=== PATIENT | male | born 1995 | race Native Hawaiian/Other Pacific Islander ===

== ENCOUNTER → 2021-10-02 13:41 | Outpatient (BNVA) | payer SELFPAY | PROVIDERS: Visit Provider Emergency Medicine | DX: R63.4 Abnormal weight loss (principal); R63.0 Anorexia | CPT/HCPCS: 80053; 85025 ==

== ENCOUNTER 2021-12-11 18:24 | Emergency (ER) | payer SELFPAY ==
[2021-12-11 18:36] VITALS: BP 145/90; PULSE 100; RESP 18; TEMP 36.8; O2SAT 96; BMI 17.4
--- NOTE | 2021-12-11 18:42 | XRR_ITS ---
PROCEDURE INFORMATION: Exam: XR Abdomen Exam date and time: 12/11/2021 7:34 PM Age: 26 years old Clinical indication: Abdominal pain; Acute; Additional info: Consitpation TECHNIQUE: Imaging protocol: Radiologic exam of the abdomen. Views: Frontal supine view of the abdomen. 1 View. COMPARISON: CR XR chest 1V [id number] 11/25/2017 12:48 AM FINDINGS: Gastrointestinal tract: Normal. No bowel dilation. Bones/joints: Unremarkable. XR/XR abdomen 1V* [id number] IMPRESSION: Negative for significant constipation or bowel dilation to indicate obstruction.
[2021-12-11 19:13] LABS: Basophils % 0.6 %; Eosinophils % 0.1 %; Hematocrit 47.4 % (42.0-52.0); Lymphocytes # 1.4 10^3/uL (0.8-4.8); Lymphocytes % 19.8 %; Mean Corpuscular HGB Conc 33.8 g/dL (30.0-36.0); Mean Corpuscular Hemoglobin 29.4 pg (28.0-34.0); Mean Platelet Volume 10.7 fL (7.4-10.4); Monocytes # 0.5 10^3/uL (0.2-0.9); Monocytes % 7.3 %; Neutrophils # 5.09 10^3/uL (1.8-7.7); Neutrophils % 71.9 %; Nucleated Red Blood Cells % 0 %; Platelet Count 202 10^3/cmm (130-400); Red Blood Count 5.45 10^6/uL (4.1-5.3); Red Cell Distribution Width 11.9 % (12.1-15.1); White Blood Count 7.1 10^3/uL (4.0-10.0)
--- NOTE | 2021-12-11 19:28 | ED_ITS ---
HPI - General Adult General: Chief complaint: General Medical Stated complaint: abd pain Time Seen by Provider: 12/11/21 19:28 History of Present Illness: Mr. Lebron is a 26-year-old gentleman with former history of alcohol abuse 2 years sober who presents to the emergency department due to weight loss and early satiety. Reports worsening of symptoms for a number of months including epigastric discomfort. He denies choking or gagging sensation. He denies changes in bowel movements or urination. Overall course of symptoms has worsened. He has noted weight loss. No other specific changes in health, exacerbating, or alleviating factors identified. Onset (ago): month(s) Location: abdomen Quality: aching Pain Consistency: constant Exacerbating factors: eating Associated symptoms: Reports other Review of Systems General: Reports: 10 or more systems reviewed and unremarkable except in HPI and below PFSH ED PFSH: Medical History (Updated 12/19/21 @ 00:01 by ) No significant past medical history Surgical History (Updated 12/11/21 @ 20:13 by Jesse Knight MD) No significant past surgical history Social History Smoking and tobacco status: former smoker Alcohol intake: former Physical Exam Const: COMMON NORMALS: alert GENERAL APPEARANCE: cooperative and well developed NUTRITIONAL APPEARANCE: underweight HENMT: COMMON NORMALS: normocephalic and atraumatic HEAD & SCALP: normoc ephalic and atraumatic Eye: COMMON NORMALS: conjunctivae normal CONJUNCTIVA: Yes conjunctivae normal SCLERA: sclerae normal Neck/C-Spine: COMMON NORMALS: supple GENERAL: Yes trachea midline Resp: COMMON NORMALS: clear to auscultation bilaterally EFFORT & INSPECTION: Yes able to speak in complete sentences AUSCULTATION: clear to auscultation bilaterally Cardio: COMMON NORMALS: regular rate and regular rhythm RATE: regular rate RHYTHM: regular rhythm GI: COMMON NORMALS: Soft to palpation PALPATION: Yes Soft to palpation, Yes Tenderness to palpation present (GI), No Guarding due to palpation present (GI) and No Rigid due to palpation Extremity: GENERAL: Yes normal exam except as noted and No edema Neuro: COMMON NORMALS: moves all extremities SENSORIUM/ORIENTATION: Yes shaniqua rt and No Orientation impaired Psych: COMMON NORMALS: mental status grossly normal and Normal thought process present THOUGHT PROCESS: Normal thought process present Course Vital Signs: Vital signs: Vital Signs Temperature 98.3 F 12/11/21 18:36 Pulse Rate 77 12/11/21 23:25 Respiratory Rate 16 12/11/21 23:25 Blood Pressure 136/84 12/11/21 23:25 Pulse Oximetry 99 12/11/21 23:25 Oxygen Delivery Me thod 12/11/21 18:36 MDM - General Adult Medical Decision Making 26-year-old gentleman presenting to the emergency department with abdominal pain and weight loss. Exam as above. Laboratory studies with no leukocytosis, normal hemoglobin. Metabolic panel with perhaps mild evidence of dehydration. Albumin is normal. X-ray abdomen negative for obstructive bowel gas pattern. CT abdomen pelvis negative for acute pathology to explain patient's symptoms. Discussed results of ED evaluation with the patient. It satisfactory for further outpatient evaluation with consideration for endoscopy and further PCP. Medical Records I reviewed the patient's medical records. Lab Data I reviewed the patient's lab results. : 12/11/21 19:04 12/11/21 19:04 Radiology Impressions Abdomen X-Ray 12/11/21 18:42 IMPRESSION: Negative for significant constipation or bowel dilation to indicate obstruction. Abdomen/Pelvis CT 12/11/21 19:47 IMPRESSION: 1. Negative for mass lesion, adenopathy or acute inflammatory process in the abdomen or pelvis. 2. Bibasilar atelectasis. Laboratory Results WBC 7.1 10^3/uL (4.0-10.0) 12/11/21 19:04 RBC 5.45 10^6/uL (4.1-5.3) H 12/11/21 19:04 Hgb 16.0 g/dL (11.7-16.6) 12/11/21 19:04 Hct 47.4 % (42.0-52.0) 12/11/21 19:04 MCV 87.0 fl (80-94) 12/11/21 19:04 MCH 29.4 pg (28.0-34.0) 12/11/21 19:04 MCHC 33.8 g/dL (30.0-36.0) 12/11/21 19:04 RDW 11.9 % (12.1-15.1) L 12/11/21 19:04 Plt Count 202 10^3/cmm (130-400) 12/11/21 19:04 MPV 10.7 fL (7.4-10.4) H 12/11/21 19:04 Neut % (Auto) 71.9 % 12/11/21 19:04 Lymph % (Auto) 19.8 % 12/11/21 19:04 [place] % (Auto) 7.3 % 12/11/21 19:04 Eos % (Auto) 0.1 % 12/11/21 19:04 Baso % (Auto) 0.6 % 12/11/21 19:04 Neut # (Auto) 5.09 10^3/uL (1.8-7.7) 12/11/21 19:04 Lymph # (Auto) 1.4 10^3/uL (0.8-4.8) 12/11/21 19:04 [place] # (Auto) 0.5 10^3/uL (0.2-0.9) 12/11/21 19:04 Eos # (Auto) 0.0 10^3/uL (0.0-0.8) 12/11/21 19:04 Baso # (Auto) 0.0 10^3/uL (0.0-0.1) 12/11/21 19:04 Nucleated RBC % (auto) 0 % 12/11/21 19:04 Nucleated RBCs # 0.0 /100WBC 12/11/21 19:04 Sodium 137 mmol/L (136-145) 12/11/21 19:04 Potassium 3.8 mmol/L (3.5-5.1) 12/11/21 19:04 Chloride 96 mmol/L (98-107) L 12/11/21 19:04 Carbon Dioxide 25 mmol/L (22-29) 12/11/21 19:04 Anion Gap 19.8 (5-19) H 12/11/21 19:04 BUN 9 mg/dL (6-20) 12/11/21 19:04 Creatinine 1.0 mg/dL (0.7-1.2) 12/11/21 19:04 GFR Calculation 90.3 mL/min (90-130) 12/11/21 19:04 Glucose 131 mg/dL (65-115) H 12/11/21 19:04 Calculated Osmolality 284 mOsm/kg (285-295) L 12/11/21 19:04 Calcium 9.8 mg/dL (8.5-10.5) 12/11/21 19:04 Total Bilirubin 0.5 mg/dL (0.15-1.2) 12/11/21 19:04 AST 12 U/L (0-40) 12/11/21 19:04 ALT < 5 U/L (0-41) 12/11/21 19:04 Alkaline Phosphatase 69 U/L (40-130) 12/11/21 19:04 Total Protein 7.9 g/dL (6.6-8.7) 12/11/21 19:04 Albumin 4.9 g/dL (3.5-5.2) 12/11/21 19:04 Globulin 3.0 g/dL (1.3-4.6) 12/11/21 19:04 Lipase 33 U/L (13-60) 12/11/21 19:04 Discharge Plan Discharge Patient Disposition: Home Clinical Impression: Abnormal weight loss, Early satiety, Abdominal pain Condition: Stable Prescriptions: New Reglan 10 mg tablet 10 mg PO TID PRN (Reason: abdominal discomfort) Qty: 30 0RF Discharge Orders: Discharge ED (Routine); Ordered 12/11/21 Ordered By: Jesse Knight Patient Instructions: Metoclopramide (By mouth), Abdominal Pain (ED) Activity Restrictions/Additional Instructions: Thank you for visiting the emergency department. You were seen and evaluated for abdominal pain with weight loss and early satiety. The exact cause of your symptoms is unclear though does not appear to need hospitalization at this time. I will message case management for follow-up with a primary care provider as well as general surgery for consideration of endoscopy. I will also prescribe Reglan which is a prokinetic agent for the bowel. I would recommend trying to at least drink meal supplement shakes. Please return to the emergency department for uncontrolled symptoms or anything else that you are concerned about a feel needs emergency department evaluation. Coding Level of Care Code ED Fruit Thinner for Harper Fwd Exam Comprehensive
--- NOTE | 2021-12-11 19:47 | CTR_ITS ---
PROCEDURE INFORMATION: Exam: CT Abdomen And Pelvis With Contrast Exam date and time: 12/11/2021 10:46 PM Age: 26 years old Clinical indication: Vomiting and other: Weight loss; Additional info: Weight loss, early satiety, abd pain TECHNIQUE: Imaging protocol: Computed tomography of the abdomen and pelvis with contrast. Radiation optimization: All CT scans at this facility use at least one of these dose optimization techniques: automated exposure control; mA and/or kV adjustment per patient size (includes targeted exams where dose is matched to clinical indication); or iterative reconstruction. Contrast material: OMNIPAQUE 350; Contrast volume: 95 ml; Contrast route: INTRAVENOUS (IV); Other contrast: Oral, 30 ml omnipaque 350, 450; COMPARISON: CR XR abdomen 1V* [id number] 12/11/2021 7:34 PM RADIATION DOSE METRICS: Total DLP (mGy-cm): 318.93 FINDINGS: Lungs: Bibasilar atelectasis. Liver: Normal. No mass. Gallbladder and bile ducts: Normal. No calcified stones. No ductal dilation. Pancreas: Normal. No ductal dilation. Spleen: Normal. No splenomegaly. Adrenal glands: Normal. No mass. Kidneys and ureters: Normal. No hydronephrosis. Stomach and bowel: Unremarkable. No obstruction. No mucosal thickening. Appendix: No evidence of appendicitis. Intraperitoneal space: Unremarkable. No free air. No significant fluid collection. Vasculature: Unremarkable. No abdominal aortic aneurysm. Lymph nodes: Unremarkable. No enlarged lymph nodes. Urinary bladder: Unremarkable as visualized. Reproductive: Unremarkable as visualized. Bones/joints: Unremarkable. No acute fracture. Soft tissues: Unremarkable. CT/CT abdomen pelvis w con* [id number] IMPRESSION: 1. Negative for mass lesion, adenopathy or acute inflammatory process in the abdomen or pelvis. 2. Bibasilar atelectasis.
[2021-12-11 20:33] LABS: Alanine Aminotransferase < 5 U/L (0-41); Albumin Level 4.9 g/dL (3.5-5.2); Alkaline Phosphatase 69 U/L (40-130); Anion Gap 19.8 (5-19); Aspartate Amino Transferase 12 U/L (0-40); Blood Urea Nitrogen 9 mg/dL (6-20); Calcium 9.8 mg/dL (8.5-10.5); Carbon Dioxide 25 mmol/L (22-29); Chloride 96 mmol/L (98-107); Creatinine Clr Calc Pharmacy 100.5464; Glomerular Filtration Rate 90.3 mL/min (90-130); Glucose 131 mg/dL (65-115); Lipase 33 U/L (13-60); Osmolality Calculated 284 mOsm/kg (285-295); Potassium 3.8 mmol/L (3.5-5.1); Sodium 137 mmol/L (136-145); Total Bilirubin 0.5 mg/dL (0.15-1.2); Total Protein 7.9 g/dL (6.6-8.7)
[2021-12-11] MEDS: iohexol 350 mg/mL 100 mL Btl IV (21:41)
[2021-12-11] MEDS: iohexol 350 mg/mL 100 mL Btl PO (22:53)
[2021-12-11 23:25] VITALS: BP 136/84; PULSE 77; RESP 16; O2SAT 99
--- NOTE | 2021-12-12 11:21 | DCPLANNER ---
Addendum entered by Pam Maldonado 12/19/21 11:57: donor relations manager received the following message from the general surgery clinic regarding follow up appointment: unable to LVM 12/18 Original Note: donor relations manager had message to schedule a follow up appointment for patient with general surgery. donor relations manager sent patients information to the front office staff at general surgery. Patients information will be printed and reviewed. Clinic will call patient with appointment information.
--- NOTE | 2021-12-12 11:22 | DCPLANNER ---
sales strategy manager had message to speak with patient about getting established with a primary care physician. sales strategy manager called phone number [phone] - recording stated that the phone number was not accepting phone calls at this time.
== END 2021-12-11 23:27 | disposition home or self-care (01) ==
PROVIDERS: Emergency Provider Emergency Medicine
DX: R68.81 Early satiety (principal); R63.4 Abnormal weight loss; R10.9 Unspecified abdominal pain; Z87.891 Personal history of nicotine dependence
CPT/HCPCS: 36415; 74018; 74177; 80053; 83690; 85025; 99284; Q9967